=== PATIENT | male | born 1980 | race Asian ===

== ENCOUNTER 2022-09-25 17:08 | Emergency (ER) | payer MEDICAID, OTHER ==
[~2022-09-25] VITALS: Ht 182.9 cm; Wt 81.8 kg
[2022-09-25 17:10] VITALS: BP 135/87
[2022-09-25] MEDS ORDERED: BUPR174T PO (17:11)
[2022-09-25] MEDS ORDERED: BACL10TA PO (20:02)
[2022-09-25] MEDS ORDERED: IBUP-1554 PO (20:02)
== END 2022-09-25 21:13 | disposition home or self-care (01) ==
LOC: EMS 17:12
DX: S13.4XXA Sprain of ligaments of cervical spine, initial encounter (principal); S46.812A Strain of other muscles, fascia and tendons at shoulder and upper arm level, left arm, initial encounter; V89.2XXA Person injured in unspecified motor-vehicle accident, traffic, initial encounter; Y93.89 Activity, other specified; Y92.89 Other specified places as the place of occurrence of the external cause; Y99.8 Other external cause status
CPT/HCPCS: 72040; 72070; 99284; Z7502